=== PATIENT | male | born 1930 | race Hispanic/Latino ===

== ENCOUNTER 2017-07-21 11:36 | Emergency (ER) | payer MEDICARE, OTHER ==
[2017-07-21 11:36] VITALS: BMI 21.9
[2017-07-21 11:57] VITALS: RESP 18; TEMP 97.9
--- NOTE | 2017-07-21 12:36 | ED PDOC ---
Arrival/HPI - General Chief Complaint: Medical Clearance Time Seen by Provider: 07/21/17 12:18 Historian: Patient - History of Present Illness Narrative History of Present Illness (Text): 07/21/17 12:31 Samuel Salas is an 87 year old male, whose past medical history includes hypothyroidism, dementia, and high cholesterol, who presents to the emergency department from home for evaluation. Patient states that he was discharged three days ago for chest pain but refused a cardiac catheterization. Over the weekend, patient's family convinced patient to get cardiac catheterization, patient returend to emergency department after speaking with someone in Yrn's office. Patient notes that he at [employer] for breakfast at 11:00 this morning and is currently asymptomatic. Patient denies any chest pain, shortness of breath, dizziness, nausea, vomiting, or any other complaints at this time. Patient endorses that is not a drinker and quit smoking about 50 years ago. Modifying Factors (Text): none Context: Home Associated Symptoms (Text): none 07/21/17 14:02 History of dementia. Patient is unable to give an accurate history. He denies chest pain or shortness of breath at this time. reports that last week he was admitted and refused catheterization. Over the weekend the family convinced him to have the test done. The spoke with the secretarial staff at ' s office who directed him to the emergency department today. Patient is not on the schedule today. He did eat a large breakfast at approximately 11 AM. Past Medical History - Provider Review Nursing Documentation Reviewed: Yes - Cardiac Hx Cardiac Disorders: Yes - Neurological Hx Dementia: Yes (forgetful) - Endocrine/Metabolic Hx Endocrine Disorders: Yes Hx Hypothyroidism: Yes - Hematological/Oncological Hx Cancer: (pt denies) Other/Comment: malaria while stationed in [employer] during the [place] - Integumentary Other/Comment: multiple dry skin areas to ble, variscosities rle, dry thick toenails, thick hard skin to right great toe and foot, left great toe crooked - Musculoskeletal/Rheumatological Hx Falls: No (pt denies) - Genitourinary/Gynecological Hx Prostate Problems: (pt denies) - Psychiatric Hx Substance Use: No - Surgical History Hx Appendectomy: Yes - Anesthesia Hx Anesthesia: Yes Hx Anesthesia Reactions: No Hx Malignant Hyperthermia: No Family/Social History - Physician Review Nursing Documentation Reviewed: Yes Family/Social History: No Known Family HX Smoking Status: Never Smoked Hx Alcohol Use: No Hx Substance Use: No Allergies/Home Meds Allergies/Adverse Reactions: Allergies No Known Allergies Allergy (Verified 07/14/17 13:41) Home Medications: Home Meds Medication Instructions Recorded Confirmed Atorvastatin [Lipitor] 20 mg PO DAILY 07/14/17 07/18/17 Oseltamivir Phosphate [Tamiflu] 75 mg PO BID 07/18/17 07/18/17 Review of Systems - Physician Review All systems were reviewed & negative as marked: Yes - Review of Systems Constitutional: absent: Fevers, Night Sweats Eyes: absent: Vision Changes ENT: absent: Hearing Changes Respiratory: absent: SOB, Cough Cardiovascular: absent: Chest Pain Gastrointestinal: absent: Abdominal Pain Genitourinary Male: absent: Dysuria, Frequency Musculoskeletal: absent: Arthralgias, Back Pain, Myalgias Skin: absent: Rash, Pruritis Neurological: absent: Headache, Dizziness Endocrine: absent: Diaphoresis Hemo/Lymphatic: absent: Adenopathy Psychiatric: absent: Anxiety, Depression Physical Exam Vital Signs Reviewed: Yes Vital Signs Temp Pulse Resp BP Pulse Ox 07/21/17 14:01 56 L 18 129/74 100 07/21/17 12:58 54 L 18 123/81 95 07/21/17 11:57 97.9 F 70 18 138/80 95 Temperature: Afebrile Blood Pressure: Normal Pulse: Regular Respiratory Rate: Normal Appearance: Positive for: Well-Appearing, Non-Toxic, Comfortable Pain Distress: None Mental Status: Positive for: Alert and Oriented X 3 - Systems Exam Head: Present: Atraumatic, Normocephalic Pupils: Present: PERRL Extroacular Muscles: Present: EOMI Conjunctiva: Present: Normal Mouth: Present: Moist Mucous Membranes Neck: Present: Normal Range of Motion Respiratory/Chest: Present: Clear to Auscultation, Good Air Exchange. No: Respiratory Distress, Accessory Muscle Use Cardiovascular: Present: Regular Rate and Rhythm, Normal S1, S2. No: Murmurs Abdomen: Present: Normal Bowel Sounds. No: Tenderness, Distention, Peritoneal Signs Back: Present: Normal Inspection Upper Extremity: Present: Normal Inspection. No: Cyanosis, Edema Lower Extremity: Present: Normal Inspection. No: Edema Neurological: Present: GCS=15, CN II-XII Intact, Speech Normal Skin: Present: Warm, Dry, Normal Color. No: Rashes Psychiatric: Present: Alert, Oriented x 3, Normal Insight, Normal Concentration Medical Decision Making ED Course and Treatment: 07/21/17 12:39 Impression: 87 year old male presents to emergency department sent from Dr. Will's office for evaluation. Plan: -- Reassess and disposition Prior Visits: Notes and results from previous visits were reviewed. Patient was last seen in the emergency department on 07/14/17 for spontaneous, non-radiating intermittent midsternal chest pain. Patient was admitted to hospitalist care for further evaluation. Progress Notes: 07/21/17 14:03 Discussed in detail with . Patient is on the cardiac catheterization scheduled for July 24 in the morning. He will be picked up at his home at 6 AM. He is to be nothing by mouth past midnight the night before. 07/21/17 14:05 EKG shows normal sinus rhythm rate approximately 60 with PACs and no acute ST or T-wave changes - Scribe Statement The provider has reviewed the documentation as recorded by the Micky Sanchez Provider Scribe Attestation: All medical record entries made by the Aleciaibe were at my direction and personally dictated by me. I have reviewed the chart and agree that the record accurately reflects my personal performance of the history, physical exam, medical decision making, and the department course for this patient. I have also personally directed, reviewed, and agree with the discharge instructions and disposition. Disposition/Present on Arrival - Present on Arrival Any Indicators Present on Arrival: No History of DVT/PE: No History of Uncontrolled Diabetes: No Urinary Catheter: No History of Decub. Ulcer: No History Surgical Site Infection Following: None - Disposition Have Diagnosis and Disposition been Completed?: Yes Diagnosis: Coronary artery disease Disposition: HOME/ ROUTINE Disposition Time: 14:04 Patient Plan: Discharge Condition: GOOD Discharge Instructions (ExitCare): Angina (ED) Additional Instructions: Patient is to have nothing by mouth past midnight on FridayJuly 23. He will be picked up at 6 AM at his home for cardiac catheterization on July 24. Referrals: Asha Guevara MD [Primary Care Provider] - Follow up with primary Forms: Monitor110 (Uzbek)
[2017-07-21 14:01] VITALS: BP 129/74; PULSE 56; O2SAT 100
--- NOTE | 2017-07-21 17:52 | CARD ---
APPROVED REPORT EKG Measurement Heart [id number] <Conclusion> Sinus rhythm with premature atrial complexes Otherwise normal ECG
== END 2017-07-21 14:40 | disposition home or self-care (01) ==
LOC: ED 11:36
DX: I25.10 Atherosclerotic heart disease of native coronary artery without angina pectoris (principal); E78.00 Pure hypercholesterolemia, unspecified; E03.9 Hypothyroidism, unspecified; Z87.891 Personal history of nicotine dependence

== ENCOUNTER 2017-07-24 06:20 | Day surgery (SDC) | payer MEDICARE ==
[2017-07-22 11:10] VITALS: BMI 21.7
[2017-07-24] MEDS ORDERED: Lidocaine 2% Inj (20ml) ONE (07:24)
[2017-07-24] MEDS ORDERED: Phenylephrine 10 mg/ml Inj ONE (07:24)
[2017-07-24] MEDS ORDERED: Iohexol 350mgl/ml 50 ML ONE (07:25)
[2017-07-24] MEDS ORDERED: Iodixanol 320 MG/ML 200 ML BOTTLE IV ONE (07:25)
[2017-07-24] MEDS ORDERED: HEPARIN SODIUM/NS 2,000 ML IV ONE (07:25)
[2017-07-24 07:32] LABS: BASO # 0.03 K/mm3 (0.0-2.0); BASO % 0.5 % (0.0-3.0); EOS # 0.5 (0.0-0.7); GRAN # 3.27 (1.4-6.5); HEMOGLOBIN 11.2 g/dL (14.0-18.0); LYMPH # 1.6 (1.2-3.4); LYMPH % 25.6 % (22.0-35.0); MEAN CELL VOLUME 94.4 fl (80.0-105.0); MEAN CORPUSCULAR HEMOGLOBIN 31.5 pg (25.0-35.0); MEAN CORPUSCULAR HGB CONC 33.3 g/dl (31.0-37.0); MONO # 0.9 (0.1-0.6); MONO % 13.9 % (1.0-6.0); RBC 3.56 10^6/uL (3.5-6.1); WHITE BLOOD COUNT 6.3 10^3/ul (4.5-11.0)
[2017-07-24 07:42] LABS: INR 1.08 (0.93-1.08); PARTIAL THROMBOPLASTIN TIME 32.4 Seconds (25.1-36.5); PROTHROMBIN TIME 12.4 SECONDS (9.4-12.5)
[2017-07-24 07:49] LABS: BLOOD UREA NITROGEN 14 mg/dL (7-21); CALCIUM 9.2 mg/dL (8.4-10.5); GFR AFRICAN-AMERICAN > 60; GFR NON-AFRICAN AMERICAN > 60; HDL CHOLESTEROL 63 mg/dL (29-60)
[2017-07-24 07:50] LABS: LDL CHOLESTEROL 116 mg/dL (0-129)
[2017-07-24 07:58] VITALS: O2SAT 97
[2017-07-24] MEDS ORDERED: Verapamil 2 ML ONE (09:03)
[2017-07-24] MEDS ORDERED: Nitroglycerin 50mg in D5W 50 MG/250 ML BOTTLE IV ONE (09:03)
[2017-07-24] MEDS ORDERED: Midazolam 2 MG/2 ML VIAL ONE (09:16)
[2017-07-24] MEDS ORDERED: Bacitracin 500 Units/gm Oint Foilpak UD TOP ONE (10:06)
[2017-07-24] MEDS ORDERED: Sodium Chloride 0.9% 1,000 ML IV SCH (10:15)
[2017-07-24 10:26] VITALS: RESP 20; TEMP 97.8
[2017-07-24 12:20] VITALS: BP 116/57; PULSE 72
[2017-07-24] MEDS ORDERED: Bacitracin 500 Units/gm Oint Foilpak UD ONE (12:40)
--- NOTE | 2017-07-24 13:54 | HP ---
REASON FOR ADMISSION: Abnormal stress test. BRIEF CLINICAL HISTORY: This is an 87-year-old male with past medical history significant for hypothyroidism and hyperlipidemia who was recently admitted on 07/14/2017, with chest pain. Patient subsequently underwent a stress test, abnormal, so patient was scheduled for elective cardiac catheterization, but patient refused and went home. Later, the family contacted as patient was having chest pain and patient is scheduled for outpatient cardiac catheterization. PAST MEDICAL HISTORY: Significant for hypothyroidism, hyperlipidemia. SOCIAL HISTORY: Denies any smoking. Denies any history of alcohol abuse. CURRENT MEDICATIONS: Patient is taking losartan 50 mg, Synthroid 200 mcg, isosorbide 50 mg, Plavix 75 mg, aspirin 81 mg, atorvastatin 20 mg daily. RECENT CARDIAC WORKUP: As follows: Patient had a stress test done on 07/15/2017 that showed abnormal perfusion study, partial reversible anteroseptal and apical defect, suspicious for ischemia, ejection fraction 43%. Patient had echocardiography done on 07/15/2017, that shows ejection fraction 50%, severe aortic regurgitation, eccentric jet of aortic insufficiency directed against anterior mitral valve leaflet, ggmc-ea-hgqwxnbm mitral regurgitation and icmc-wa-tmzrzgjj tricuspid regurgitation. normal sized, collateral 50%. REVIEW OF SYSTEMS: As per HPI. PHYSICAL EXAMINATION: VITAL SIGNS: Temperature is afebrile, heart rate 70, blood pressure 130/80. HEENT: PERRLA , intact. NECK: Supple. No carotid bruit. No thyromegaly. CHEST: Clear to auscultation. HEART: S1 and S2 regular. ABDOMEN: Soft. EXTREMITIES: Clubbing and cyanosis, negative. LABORATORY DATA: Blood workup: As follows: WBC 5, hemoglobin 11, hematocrit 35.1, platelet count 165. Chemistry shows sodium 137, potassium 3.7, chloride 102, carbon dioxide 24, anion gap of 15, BUN 19, creatinine is 1.0. Triglycerides 167, cholesterol 288, LDL 178, HDL 66. TSH 165 on 200 mcg of Synthroid. IMPRESSION: Severe hypothyroidism, hyperlipidemia. Abnormal stress test done on 07/15/2017 showed diffuse hypokinesis of the ventricles, distal anteroseptal ischemia. Echo showed ejection fraction 50%, severe aortic regurgitation, tfby-ci-wvxnmpvs mitral regurgitation, xzzd-so-mlaydmzi tricuspid regurgitation. RECOMMENDATIONS: We will do cardiac catheterization. Patient agreed. We will proceed with cardiac catheterization. We will repeat the blood work. Risks, benefit, and alternatives were explained to the patient. Patient is agreeable to proceed with cardiac catheterization. Further recommendation after the cardiac catheterization. Thank you, Dr. Alejandra, for providing me the opportunity in taking care of the patient, Samuel Salas. Karena Will MD
--- NOTE | 2017-07-24 17:12 | CARD ---
APPROVED REPORT Procedure(s) performed: Left Heart Catheterization HISTORY The patient is a 87 year-old male with a history of : most recent EF: 43%. (EF Method: RADIONUCLIDE), previous diagnostic cath, hypertension , dyslipidemia . INDICATION The indication(s) include : positive stress test, chest pain, dyspnea. CASE TECHNIQUE The patient was brought electively to the Cardiac Catheterization Laboratory in a fasting state and was prepped and draped in a sterile manner. The left wrist was infiltrated with 2% Lidocaine subcutaneous anesthesia. A 6FR GLIDESHEATH ACCESS KIT sheath was inserted into the left radial artery without difficulty. Coronary angiography was performed using coronary diagnostic catheters. The left coronary system was accessed and visualized with a Diagnostic ,5 Fr JL 4 catheter. The right coronary system was accessed and visualized with a Diagnostic ,5 Fr JR 4 catheter. The left ventricle was accessed and visualized with a 5 Fr Pigtail 145 (Angled) catheter. Left ventricular/Aortic Valve gradient assessed on pullback. Left ventriculogram was performed in MAZARIEGOS projection. Closure device was deployed with a Fr TR Band (Regular) without any complications. The patient tolerated the procedure well and there were no complications associated with the procedure. Vessel Analysis The patient's coronary anatomy is co-dominant. The left main coronary artery is a medium size vessel very short or two separate ostium for LAD and CX. The left main bifurcates to the left anterior descending and circumflex. The left anterior descending artery is a medium size vessel with diffuse calcification noted throughout this vessel and without significant stenosis. There is a 50% stenosis in the mid segment. The first diagonal branch is a small size vessel with diffuse calcification noted throughout this vessel and without significant stenosis. The second diagonal branch is a small size vessel with diffuse calcification noted throughout this vessel and without significant stenosis. The circumflex artery is a large size vessel with diffuse calcification noted throughout this vessel and without significant stenosis. There is a 60% stenosis in the distal segment. The first obtuse marginal branch is a large size vessel with diffuse calcification noted throughout this vessel and without significant stenosis. The second obtuse marginal branch is a small size vessel with diffuse calcification noted throughout this vessel and without significant stenosis. The left posterior descending artery is a large size vessel with diffuse calcification noted throughout this vessel and without significant stenosis. The right coronary artery is a medium size vessel with diffuse calcification noted throughout this vessel and without significant stenosis. The right posterior descending artery is a medium size vessel with diffuse calcification noted throughout this vessel and without significant stenosis. The right posterolateral branch is a small size vessel with diffuse calcification noted throughout this vessel and without significant stenosis. Left Ventricle The left ventricle is normal in size with nmormal contractility. There was no cardiomyopathy. The left ventricular ejection fraction is estimated to be 55%. The left ventricular end diastolic pressure is 12 mmHg. There was no gradient across the aortic valve upon pullback. Conclusion Moderate Disease in CX and LAD Preserved LV Fx; EF-55%, EDP-12 mmof hg. Recommendations Aggressive Medical TherapyCardiac Risk Reduction Program Baby Asa, Levoxyl and Statin. CC; DR. Asha Guevara MD
--- NOTE | 2017-07-24 18:09 | CARD ---
APPROVED REPORT EKG Measurement Heart [id number] <Conclusion> Sinus arrhythmia Prolonged QT Abnormal ECG
== END 2017-07-24 15:15 | disposition home or self-care (01) ==
LOC: CATH 06:20
PROVIDERS: ATTEND Internal Medicine Cardiovascular Disease
DX: I25.10 Atherosclerotic heart disease of native coronary artery without angina pectoris (principal); I10 Essential (primary) hypertension; I08.3 Combined rheumatic disorders of mitral, aortic and tricuspid valves; E78.5 Hyperlipidemia, unspecified; E03.9 Hypothyroidism, unspecified
CPT/HCPCS: 36415; 80048; 80061; 85025; 85610; 85730; 86850; 86900; 93005; 93458; 99152; C1769; C1887 ×2; J1644 ×2; J2250; J3010; J7030; J7040